=== PATIENT | male | born 1950 | race African-American/Black ===

== ENCOUNTER 2021-05-02 22:04 | Inpatient (IN) | payer MEDICAID, MEDICARE, OTHER ==
[~2021-05-02] VITALS: Ht 175.3 cm; Wt 72.3 kg
[2021-05-02] MEDS ORDERED: IPRATROPIUM BROMIDE (0.02%) 0.5MG/2.5ML NEB HHN STA (22:33)
[2021-05-02] MEDS ORDERED: METHYLPREDNISOLONE SOD SUCC 125 MG/2 ML VIAL IV STA (22:33)
[2021-05-02] MEDS ORDERED: ALBUTEROL (0.083%) 2.5MG/3ML NEB HHN STA (22:33)
[2021-05-02] MEDS ORDERED: ASPIRIN 81MG TABLET PO ONE (22:45)
[2021-05-03 00:01] LABS: BASOPHILS % 0.5 % (0.0-2.0); EOSINOPHILS % 3.7 % (0.0-5.0); HEMATOCRIT. 31.8 % (42.0-52.0); HEMOGLOBIN. 10.4 g/dL (14.0-18.0); LYMPHOCYTES % 30.5 % (20.0-50.0); MEAN CORPUSCULAR HEMOGLOBIN 23.3 pg (28.0-32.0); MEAN CORPUSCULAR VOLUME 71.5 fL (80.0-94.0); NEUTROPHILS % 58.3 % (40.0-76.0); PLATELET 376 x1000/uL (130-400); RED BLOOD CELL COUNT 4.44 mill/uL (4.7-6.1); RED CELL DISTRIBUTION WIDTH 16.8 % (11.6-14.6)
[2021-05-03 00:05] LABS: CHLORIDE 100 mEq/L (98-107)
[2021-05-03] MEDS ORDERED: POTASSIUM CHLORIDE 20MEQ TABLET SR PO ONE (00:45)
[2021-05-03 08:00] VITALS: BP 148/75
[2021-05-03 09:45] VITALS: BP 148/79
[2021-05-03] MEDS ORDERED: ASPI-1497 PO (10:11)
[2021-05-03] MEDS ORDERED: HYDROCHLOROTHIAZIDE PO (10:11)
[2021-05-03] MEDS ORDERED: NAPR-681 MT (10:11)
[2021-05-03] MEDS ORDERED: LISI40TA13 MT (10:11)
[2021-05-03] MEDS ORDERED: ONDANSETRON HCL 4MG/2ML INJ IV PRN (11:00)
[2021-05-03] MEDS ORDERED: HYDROCODONE/ACETAMINOPHEN 5/325MG TABLET PO PRN (11:00)
[2021-05-03] MEDS ORDERED: NA PHOS,M-B/NA PHOS,DI-BA ENEMA 118ML PR PRN (11:00)
[2021-05-03] MEDS ORDERED: LORAZEPAM 0.5MG TABLET PO PRN (11:00)
[2021-05-03] MEDS ORDERED: ACETAMINOPHEN 325MG TABLET PO PRN (11:00)
[2021-05-03] MEDS ORDERED: DOCUSATE SODIUM 100MG CAPSULE PO PRN (11:00)
[2021-05-03] MEDS ORDERED: DIPHENHYDRAMINE 50MG/ML VIAL IV PRN (11:00)
[2021-05-03] MEDS ORDERED: CLONIDINE 0.1MG TABLET PO PRN (11:00)
[2021-05-03] MEDS ORDERED: MAGNESIUM/ALUMINUM HYDROXIDE/SIMETHICONE 30ML UDC PO PRN ×2 (11:00→16:15)
[2021-05-03] MEDS ORDERED: IPRATROPIUM/ALBUTEROL 0.5-3(2.5)MG/3ML NEB NEB PRN (11:00)
[2021-05-03] MEDS ORDERED: ACETAMINOPHEN 650MG SUPP PR PRN (11:00)
[2021-05-03 12:00] VITALS: BP 154/81
[2021-05-03] MEDS: METHYLPREDNISOLONE SOD SUCC 40 MG/ML VIAL IV SCH ×2 (12:35→18:27)
[2021-05-03] MEDS: ENOXAPARIN 40MG/0.4ML SYR SUBCUT SCH (12:35)
[2021-05-03] MEDS: LEVOFLOXACIN 500MG PREMIX 100 ML IV SCH (12:36)
[2021-05-03 13:28] LABS: CLARITY URINE CLEAR (CLEAR); COLOR URINE YELLOW (YELLOW); KETONES URINE NEGATIVE (NEGATIVE); LEUKOCYTE ESTERASE URINE NEGATIVE (NEGATIVE); NITRITE URINE NEGATIVE (NEGATIVE); OCCULT BLOOD URINE NEGATIVE (NEGATIVE); PROTEIN URINE 1+ (NEGATIVE); UROBILINOGEN URINE 0.2 E.U./dL (0.2-1.0)
[2021-05-03 13:51] LABS: *AMPHETAMINES SCREEN URINE NEGATIVE (NEGATIVE); *BARBITURATES SCREEN URINE NEGATIVE (NEGATIVE); *BENZODIAZEPINES SCREEN URINE NEGATIVE (NEGATIVE); *COCAINE SCREEN URINE PRESUMTIVE POSITIVE (NEGATIVE); CANNABINOID URINE SCREEN NEGATIVE (NEGATIVE); METHADONE URINE SCREEN NEGATIVE (NEGATIVE); OPIATES URINE SCREEN NEGATIVE (NEGATIVE); PHENCYCLIDINE URINE SCREEN NEGATIVE (NEGATIVE)
[2021-05-03 14:50] LABS: HEMATOCRIT. 30.8 % (42.0-52.0); HEMOGLOBIN. 9.4 g/dL (14.0-18.0); MEAN CORPUSCULAR HEMOGLOBIN 21.9 pg (28.0-32.0); MEAN CORPUSCULAR VOLUME 71.7 fL (80.0-94.0); MEAN PLATELET VOLUME 7.3 fl (7.4-10.4); PLATELET 407 x1000/uL (130-400); RED CELL DISTRIBUTION WIDTH 16.6 % (11.6-14.6)
[2021-05-03 14:56] LABS: PROTHROMBIN TIME 10.9 sec (9.6-11.0)
[2021-05-03 15:18] LABS: CHLORIDE 99 mEq/L (98-107)
[2021-05-03 15:29] LABS: CREATINE KINASE 264 IU/L (39-308)
[2021-05-03 15:34] LABS: BG BASE EXCESS 3.1 mmol/L (-2.0-2.0); BG CARBOXYHEMOGLOBIN 0.2 % (0.5-1.5); BG DEOXYHEMOGLOBIN 5.7 % (0.0-5.0); BG FRACTION INSPIRED OXYGEN 21; BG HCO3 ACT 26.7 mmol/L (22.0-26.0); BG METHEMOGLOBIN 0.3 % (0.0-1.5); BG OXYGEN SATURATION 94.3 % (92.0-98.5); BG OXYHEMOGLOBIN 93.8 % (94.0-97.0); BG PCO2 36.7 mmHg (35.0-45.0); BG PH 7.479 (7.350-7.450); BG SAMPLE SITE RIGHT RADIAL; BG TOTAL HEMOGLOBIN 10.6 g/dL (12.0-18.0); BG VENT MODE ROOM AIR
[2021-05-03] MEDS: FOLIC ACID 1MG TABLET PO SCH (15:34)
[2021-05-03] MEDS: MULTIVITAMINS,THER W-MINERALS TABLET PO SCH (15:35)
[2021-05-03] MEDS: NICOTINE 14MG PATCH TD SCH (15:35)
[2021-05-03] MEDS: THIAMINE HCL 100MG TABLET PO SCH (15:35)
[2021-05-03 16:00] VITALS: BP 150/79
[2021-05-03] MEDS ORDERED: FAMOTIDINE 20MG/2ML VIAL IV NR (16:15)
[2021-05-03] MEDS: IPRATROPIUM/ALBUTEROL 0.5-3(2.5)MG/3ML NEB NEB SCH (20:02)
[2021-05-03 20:18] VITALS: BP 135/81
[2021-05-03] MEDS: GUAIFENESIN 200MG/10ML SUGAR FREE UDC PO PRN (20:34)
[2021-05-03] MEDS ORDERED: FAMOTIDINE 20MG TABLET PO SCH (21:00)
[2021-05-03 23:30] LABS: CREATINE KINASE 318 IU/L (39-308)
[2021-05-03 23:31] LABS: CREATINE KINASE MB FRACTION 4.9 ng/mL (0.5-3.6)
[2021-05-04 00:27] VITALS: BP 135/84
[2021-05-04 01:41] LABS: PLATELET ESTIMATE NORMAL
[2021-05-04] MEDS: IPRATROPIUM/ALBUTEROL 0.5-3(2.5)MG/3ML NEB NEB SCH ×3 (02:06→13:31)
[2021-05-04] MEDS: METHYLPREDNISOLONE SOD SUCC 40 MG/ML VIAL IV SCH ×2 (03:56→11:36)
[2021-05-04 04:00] VITALS: BP 135/67
[2021-05-04 06:38] LABS: HEMATOCRIT. 32.7 % (42.0-52.0); MEAN CORPUSCULAR HEMOGLOBIN 21.7 pg (28.0-32.0); MEAN CORPUSCULAR VOLUME 70.6 fL (80.0-94.0); MEAN PLATELET VOLUME 7.3 fl (7.4-10.4); PLATELET 424 x1000/uL (130-400); RED BLOOD CELL COUNT 4.63 mill/uL (4.7-6.1); RED CELL DISTRIBUTION WIDTH 17.2 % (11.6-14.6)
[2021-05-04] MEDS: GUAIFENESIN 200MG/10ML SUGAR FREE UDC PO PRN (06:45)
[2021-05-04 06:49] LABS: CHLORIDE 101 mEq/L (98-107)
[2021-05-04 07:39] LABS: HDL CHOLESTEROL 94 mg/dL (40-59); LDL CHOLESTEROL 72 mg/dL (5-100)
[2021-05-04 07:43] LABS: T4 FREE 0.76 ng/dL (0.76-1.46)
[2021-05-04 08:00] VITALS: BP 138/70
[2021-05-04] MEDS: THIAMINE HCL 100MG TABLET PO SCH (08:27)
[2021-05-04] MEDS: NICOTINE 14MG PATCH TD SCH (08:27)
[2021-05-04] MEDS: FOLIC ACID 1MG TABLET PO SCH (08:27)
[2021-05-04] MEDS: MULTIVITAMINS,THER W-MINERALS TABLET PO SCH (08:27)
[2021-05-04] MEDS: LEVOFLOXACIN 500MG PREMIX 100 ML IV SCH (11:36)
[2021-05-04] MEDS: ENOXAPARIN 40MG/0.4ML SYR SUBCUT SCH (11:36)
[2021-05-04 12:00] VITALS: BP 136/80
[2021-05-04 13:46] LABS: PLATELET ESTIMATE INCREASED
[2021-05-04 13:52] VITALS: BP 136/80
[2021-05-04] MEDS ORDERED: FAMOTIDINE 20MG TABLET PO SCH (21:00)
== END 2021-05-04 15:35 | disposition home or self-care (01) | DRG 918 ==
LOC: ER 22:04 → EDBD 22:04 → EDBEDREQ 05-03 02:58 → EDBEDREQTM 05-03 02:58 → EDBEDREQDT 05-03 02:58 → CANRESERV 05-03 07:18 → ENRESERV 05-03 07:18 → 5WST 05-03 09:57
PROVIDERS: ADMIT Internal Medicine; ATTEND Internal Medicine
DX: T40.5X1A Poisoning by cocaine, accidental (unintentional), initial encounter (principal); J44.1 Chronic obstructive pulmonary disease with (acute) exacerbation; J45.901 Unspecified asthma with (acute) exacerbation; J68.0 Bronchitis and pneumonitis due to chemicals, gases, fumes and vapors; I10 Essential (primary) hypertension; F17.210 Nicotine dependence, cigarettes, uncomplicated; F14.90 Cocaine use, unspecified, uncomplicated; F10.10 Alcohol abuse, uncomplicated; Z20.822 Contact with and (suspected) exposure to COVID-19; R06.03 Acute respiratory distress; D64.9 Anemia, unspecified; E87.6 Hypokalemia; Y92.89 Other specified places as the place of occurrence of the external cause
CPT/HCPCS: 36415; 36600; 71045; 80053; 80061; 80305; 81003; 82375; 82550; 82553; 82805; 83735; 83880; 84439; 84443; 84484; 85025; 87426; 93005; 93306; 93970; 94640; 94644; 97161; 99285; A4565; C1893; J1650; J1956; J2920; J2930; J3490

== ENCOUNTER 2021-08-17 20:10 | Emergency (ER) | payer OTHER ==
[~2021-08-17] VITALS: Ht 175.3 cm; Wt 77.0 kg
[~2021-08-17 20:10] MED LIST: ASPI-1497 PO; HYDROCHLOROTHIAZIDE PO; LISI40TA13 MT; NAPR-681 MT
[2021-08-17] MEDS ORDERED: PREDNISONE 20MG TABLET PO NR (21:30)
[2021-08-17] MEDS ORDERED: HYDROCODONE/ACETAMINOPHEN 5/325MG TABLET PO ONE ×2 (21:30→23:30)
[2021-08-17] MEDS ORDERED: ALBUTEROL (0.083%) 2.5MG/3ML NEB HHN NR (21:30)
[2021-08-17] MEDS ORDERED: IPRATROPIUM BROMIDE (0.02%) 0.5MG/2.5ML NEB HHN NR (21:30)
[2021-08-17] MEDS ORDERED: MAGNESIUM/ALUMINUM HYDROXIDE/SIMETHICONE 30ML UDC PO ONE (21:30)
[2021-08-17] MEDS ORDERED: ALBUTEROL (0.083%) 2.5MG/3ML NEB ONE (21:55)
[2021-08-17 22:06] LABS: BASOPHILS % 0.8 % (0.0-2.0); EOSINOPHILS % 0.6 % (0.0-5.0); HEMATOCRIT. 35.5 % (42.0-52.0); LYMPHOCYTES % 7.6 % (20.0-50.0); MEAN CORPUSCULAR HEMOGLOBIN 22.1 pg (28.0-32.0); MEAN CORPUSCULAR VOLUME 71.7 fL (80.0-94.0); MEAN PLATELET VOLUME 8.5 fl (7.4-10.4); PLATELET 290 x1000/uL (130-400); RED BLOOD CELL COUNT 4.96 mill/uL (4.7-6.1); RED CELL DISTRIBUTION WIDTH 21.8 % (11.6-14.6)
[2021-08-17 22:11] LABS: CHLORIDE 105 mEq/L (98-107)
[2021-08-17] MEDS ORDERED: P50 MT (22:40)
[2021-08-17] MEDS ORDERED: AMOX-424 MT (22:40)
[2021-08-17] MEDS ORDERED: AZIT250T12 MT (22:40)
[2021-08-17 23:26] VITALS: BP 153/88
== END 2021-08-17 23:38 | disposition home or self-care (01) ==
LOC: ER 20:10
DX: J44.1 Chronic obstructive pulmonary disease with (acute) exacerbation (principal); I10 Essential (primary) hypertension; Z79.82 Long term (current) use of aspirin
CPT/HCPCS: 36415; 71045; 80053; 83880; 84484; 85025; 87426; 93005; 94644; 99285; J7512

== ENCOUNTER 2021-09-13 21:10 | Emergency (ER) | payer OTHER, MEDICAID ==
[~2021-09-13] VITALS: Ht 172.7 cm; Wt 69.0 kg
[~2021-09-13 21:10] MED LIST changes: +AMOX-424 MT; +AZIT250T12 MT; +P50 MT
[2021-09-13] MEDS ORDERED: PREDNISONE 20MG TABLET PO STA (23:05)
[2021-09-13] MEDS ORDERED: IPRATROPIUM BROMIDE (0.02%) 0.5MG/2.5ML NEB HHN STA (23:05)
[2021-09-13] MEDS ORDERED: ALBUTEROL (0.083%) 2.5MG/3ML NEB HHN STA (23:05)
[2021-09-13] MEDS ORDERED: MAGNESIUM 2 G PREMIX 50 ML IV ONE (23:15)
[2021-09-14] MEDS ORDERED: P20 MT (00:48)
[2021-09-14] MEDS ORDERED: ALBU90AE INH (00:48)
[2021-09-14 01:20] VITALS: BP 140/70
== END 2021-09-14 01:43 | disposition home or self-care (01) ==
LOC: ER 21:31
DX: J44.1 Chronic obstructive pulmonary disease with (acute) exacerbation (principal); I10 Essential (primary) hypertension; M19.90 Unspecified osteoarthritis, unspecified site; Z79.82 Long term (current) use of aspirin
CPT/HCPCS: 71045; 94640; 96365; 99284; J3475; J7512